=== PATIENT | female | born 1990 | race Caucasian/White ===

== ENCOUNTER 2016-10-23 12:43 | Emergency (ER) | payer MEDICAID ==
[2012-03-18 21:31] VITALS: BP 142/87
[2016-10-23] MEDS ORDERED: TORAdol 30 mg Injection IM ONE (13:32)
[2016-10-23] MEDS ORDERED: Norflex 60 MG/2 ML IM ONE (13:32)
--- NOTE | 2016-10-23 13:35 | ERPHSYRPT ---
- History of Present Illness Time Seen by Provider: 10/23/16 13:29 Source: patient Patient Subjective Stated Complaint: pt states she began having right mid-lower back pain last evening. denies any injury. denies any dysuria. Triage Nursing Assessment: pt pink, warm, dry. pt ambulted into ER without difficulty. no deformity noted to back. Physician History: CC: back pain Hx: 26 y/o patient with rather severe back pain, worse with any movement. LMP last week and normal. No cough, abd pain, N/T/W. Normal urination with no dysuria or incontinence. No fever or chills. Prior kidney infection. No discreet injury. Timing/Duration: day(s) (couple) Back Pain Location: lumbar spine Severity of Pain-Max: severe Severity of Pain-Current: severe Allergies/Adverse Reactions: banana [Banana] Allergy (Verified 10/23/16 13:21) Home Medications: Acetaminophen [Tylenol] 325 mg PO Q6HPRN PRN 10/23/16 [History] [place]'s Wort 300 mg PO DAILY 10/23/16 [History] Hx Tetanus, Diphtheria Vaccination/Date Given: Yes (unknown) Hx Influenza Vaccination/Date Given: No Hx Pneumococcal Vaccination/Date Given: No Immunizations Up to Date: Yes - Review of Systems Constitutional: No Fever, No Chills Eyes: No Symptoms Ears, Nose, & Throat: No Symptoms Respiratory: No Cough Abdominal/Gastrointestinal: Nausea, No Abdominal Pain, No Vomiting Genitourinary Symptoms: No Dysuria, No Hematuria, No Incontinence, No Musculoskeletal: Back Pain Skin: No Rash Neurological: No Focal Weakness, No Headache, No Parasthesia All Other Systems: Reviewed and Negative - Past Medical History Pertinent Past Medical History: No Neurological History: Migraines ENT History: No Pertinent History Cardiac History: No Pertinent History Respiratory History: Asthma Endocrine Medical History: No Pertinent History Musculoskeletal History: Fractures GI Medical History: No Pertinent History History: No Pertinent History Psycho-Social History: Depression Female Reproductive Disorders: No Pertinent History Other Medical History: hx right wrist fracture - Past Surgical History Past Surgical History: Yes Neuro Surgical History: No Pertinent History Cardiac: No Pertinent History Respiratory: No Pertinent History Gastrointestinal: No Pertinent History Genitourinary: No Pertinent History Musculoskeletal: Orthopedic Surgery Female Surgical History: No Pertinent History Other Surgical History: tonsillectomy - Social History Smoking Status: Current every day smoker How long have you smoked: 10 Exposure to second hand smoke: Yes Drug Use: none Patient Lives Alone: No - Female History Hx Last Menstrual Period: october 14 Hx Now: Yes - Nursing Vital Signs Nursing Vital Signs: Initial Vital Signs Temperature 99.3 F Temperature Source Oral Pulse Rate 74 Respiratory Rate 18 Blood Pressure [Right Arm] 128/89 Pain Intensity [Right Lower 8 Back] Pain Intensity 8 - Physical Exam General Appearance: alert Eye Exam: PERRL/EOMI Ears, Nose, Throat Exam: moist mucous membranes Neck Exam: normal inspection, non-tender, supple Respiratory Exam: normal breath sounds Cardiovascular Exam: regular rate/rhythm Gastrointestinal Exam: soft, No tenderness, No distention Back Exam: normal inspection, muscle spasm (right paraspinous worse), No CVA tenderness, No vertebral tenderness Extremity Exam: normal inspection, normal range of motion Neurologic Exam: alert, oriented x 3, cooperative, sensation nml, No motor deficits Skin Exam: warm, dry, No rash SpO2 Interpretation: normal SpO2: 99 Oxygen Delivery: Room Air - Course Nursing assessment & vital signs reviewed: Yes Ordered Tests: Active Orders 24 hr Category Date Time Status Clean Catch Urine Specimen STAT Care 10/23/16 13:32 Active HCG,QUALITATIVE URINE Stat Lab 10/23/16 13:40 Completed UA W/ MICROSCOPIC Stat Lab 10/23/16 13:32 Results Medication Summary Discontinued Medications Generic Name Dose Route Start Last Admin Trade Name Jakubq PRN Reason Stop Dose Admin Ketorolac Tromethamine 60 mg 10/23/16 13:32 10/23/16 13:42 Toradol 30 Mg Injection IM 10/23/16 13:33 60 mg STAT ONE Administration Ketorolac Tromethamine Confirm 10/23/16 13:41 Toradol 30 Mg Injection Administered 10/23/16 13:42 Dose 60 mg .ROUTE .STK-MED ONE Orphenadrine Citrate 60 mg 10/23/16 13:32 10/23/16 13:42 Norflex 60 Mg/2 Ml IM 10/23/16 13:33 60 mg STAT ONE Administration Orphenadrine Citrate Confirm 10/23/16 13:41 Norflex 60 Mg/2 Ml Administered 10/23/16 13:42 Dose 60 mg .ROUTE .STK-MED ONE Lab/Rad Data: Laboratory Results 10/23/16 10/23/16 Range/Units 13:40 13:32 Ur Collection Type CLEAN CATCH Urine Color YELLOW (YELLOW) Urine Appearance HAZY (CLEAR) Urine pH 8.0 (5-6) Ur Specific [place] 1.010 (1.005-1.025) Urine Protein NEGATIVE (Negative) Urine Ketones NEGATIVE (NEGATIVE) Urine Blood NEGATIVE (0-5) Lon/ul Urine Nitrite NEGATIVE (NEGATIVE) Urine Bilirubin NEGATIVE (NEGATIVE) Urine Urobilinogen NORMAL (0-1) mg/dL Ur Leukocyte Esterase TRACE (NEGATIVE) Urine Microscopic RBC 0-2 (0-2) /HPF Urine Microscopic WBC 2-5 (0-5) /HPF Ur Epithelial Cells FEW (FEW) /HPF Urine Bacteria FEW (NEGATIVE) /HPF Urine Mucus SLIGHT (NEGATIVE) /HPF Urine Glucose NEGATIVE (NEGATIVE) mg/dL Urine HCG, Qual NEGATIVE (Negative) Specimen Received [id number] - Progress Progress Note: 10/23/16 14:12 IM toradol and norflex given. Some relief starting. UA basically neg. Will release with back pain instr. Counseled pt/family regarding: lab results, diagnosis, need for follow-up - Departure Time of Disposition: 14:12 Departure Disposition: Home Clinical Impression: Back pain Qualifiers: Back pain location: low back pain Chronicity: acute Back pain laterality: bilateral Sciatica presence: without sciatica Qualified Code(s): M54.5 - Low back pain Condition: Stable Critical Care Time: No Referrals: ZEFERINO ARAMBULA [Primary Care Provider] - Instructions: Low Back Pain Additional Instructions: BACK INJURY 1. May apply moist heat frequently for relief of pain. Take care not to burn the skin. Do not use heat for more than 30 minutes at a time. 2. Try to sleep on a firm bed, flat on your back. 3. If no improvement is noticed in 2-3 days, follow up with your family physician. 4. If you notice any numbness, tingling, weakness, or problems with your bowel or bladder, you should call your family physician or return to the emergency department. Rx motrin=ibuprofen. Rx norflex. Follow up with Dr Arambula. No driving today or while taking norflex. Prescriptions: Ibuprofen 600 mg PO Q6H PRN PRN #24 tablet PRN Reason: Pain Orphenadrine Citrate 100 mg [Norflex 100 MG Tablet] 1 tab PO BID #10 tab
[2016-10-23 13:41] LABS: Bilirubin NEGATIVE (NEGATIVE); Blood NEGATIVE Ery/ul (0-5); COMPLETE URINE MICROSCOPIC? YES; Collection Type CLEAN CATCH; Glucose NEGATIVE (NEGATIVE); Leukocyte Esterase TRACE (NEGATIVE)
[2016-10-23] MEDS ORDERED: Norflex 60 MG/2 ML ONE (13:41)
[2016-10-23] MEDS ORDERED: TORAdol 30 mg Injection ONE (13:41)
[2016-10-23 13:49] LABS: Bacteria FEW /HPF (NEGATIVE); Epithelial Cells FEW /HPF (FEW); Mucus SLIGHT /HPF (NEGATIVE)
[2016-10-23 14:20] VITALS: BP 138/70; PULSE 86; O2SAT 100
[2016-10-23 14:33] LABS: ADD URINE CULTURE? NO (NO)
== END 2016-10-23 14:19 | disposition home or self-care (01) ==
LOC: ED 12:43
DX: M54.5 Low back pain (principal); R11.0 Nausea
CPT/HCPCS: 81000; 84703; 96372; 99283; J1885; J2360

== ENCOUNTER 2016-10-29 19:25 | Observation (INO) | payer MEDICAID, OTHER ==
[2016-10-29] MEDS ORDERED: THIAMINE 200 MG/2 ML IV ONE (19:32)
[2016-10-29] MEDS ORDERED: Ativan 2 MG/1 ML VIAL IV ONE ×3 (19:32→21:58)
[2016-10-29] MEDS ORDERED: Sodium Chloride 0.9% 1000 ML 1,000 ML IV STA (19:32)
--- NOTE | 2016-10-29 19:37 | ERPHSYRPT ---
- History of Present Illness Time Seen by Provider: 10/29/16 19:34 Source: patient, police Exam Limitations: clinical condition Physician History: 26-year-old white female who is brought by the radiology transporter's department, Patient arrives combative, Patient apparently drinking a large amount of alcohol, Patient will not tell me any complaints, Patient is restrained by the police, Past medical history includes asthma, rib fractures, depression, Past surgical history includes orthopedic surgery tonsillectomy and adenoidectomy Timing/Duration: today Severity: moderate Modifying Factors: Improves With: other (patient apparently drinking "fire balls today") Associated Symptoms: other (patient combative will not elaborate symptoms) Allergies/Adverse Reactions: banana [Banana] Allergy (Verified 10/23/16 13:21) Home Medications: Acetaminophen [Tylenol] 325 mg PO Q6HPRN PRN 10/23/16 [History] [place]'s Wort 300 mg PO DAILY 10/23/16 [History] Hx Tetanus, Diphtheria Vaccination/Date Given: Yes (unknown) Hx Influenza Vaccination/Date Given: No Hx Pneumococcal Vaccination/Date Given: No - Review of Systems Constitutional: No Fever, No Chills Eyes: No Symptoms Ears, Nose, & Throat: No Symptoms Respiratory: No Cough, No Dyspnea Cardiac: No Chest Pain, No Edema, No Syncope Abdominal/Gastrointestinal: No Abdominal Pain, No Nausea, No Vomiting, No Diarrhea Genitourinary Symptoms: No Dysuria Musculoskeletal: No Back Pain, No Neck Pain Skin: No Rash Neurological: No Dizziness, No Focal Weakness, No Sensory Changes Psychological: Other (patient combative will not elaboratesymptoms has been drinking) Endocrine: No Symptoms All Other Systems: Reviewed and Negative - Past Medical History Pertinent Past Medical History: No Neurological History: Migraines ENT History: No Pertinent History Cardiac History: No Pertinent History Respiratory History: Asthma Endocrine Medical History: No Pertinent History Musculoskeletal History: Fractures GI Medical History: No Pertinent History History: No Pertinent History Psycho-Social History: Depression Female Reproductive Disorders: No Pertinent History Other Medical History: hx right wrist fracture - Past Surgical History Past Surgical History: Yes Neuro Surgical History: No Pertinent History Cardiac: No Pertinent History Respiratory: No Pertinent History Gastrointestinal: No Pertinent History Genitourinary: No Pertinent History Musculoskeletal: Orthopedic Surgery Female Surgical History: No Pertinent History Other Surgical History: tonsillectomy - Social History Smoking Status: Current every day smoker How long have you smoked: 10 Exposure to second hand smoke: Yes Drug Use: none Patient Lives Alone: No - Female History Hx Now: Yes - Nursing Vital Signs Nursing Vital Signs: Initial Vital Signs Temperature 97.4 F Temperature Source Oral Pulse Rate 78 Respiratory Rate 16 Blood Pressure [Right Arm] 127/84 - Physical Exam General Appearance: other (well-developed obese white female yelling at staff restrained with hand cuffs, ) Eye Exam: PERRL/EOMI, eyes nml inspection Ears, Nose, Throat Exam: normal ENT inspection, TMs normal, pharynx normal, moist mucous membranes Neck Exam: normal inspection, non-tender, supple, full range of motion Respiratory Exam: normal breath sounds, lungs clear, No respiratory distress Cardiovascular Exam: regular rate/rhythm, normal heart sounds, normal peripheral pulses Gastrointestinal/Abdomen Exam: soft, normal bowel sounds, No tenderness, No mass Back Exam: normal inspection, normal range of motion, No CVA tenderness, No vertebral tenderness Extremity Exam: normal inspection, normal range of motion, pelvis stable Neurologic Exam: alert, oriented x 3, cooperative, normal mood/affect, nml cerebellar function, nml station & gait, sensation nml, No motor deficits Skin Exam: normal color, warm, dry, No rash Lymphatic Exam: No adenopathy SpO2 Interpretation: normal - Course EKG Interpreted by Me: RATE (96 bpm), NORMAL AXIS Ordered Tests: Active Orders 24 hr Category Date Time Status Accucheck STAT Care 10/29/16 19:32 Active EKG-ER Only STAT Care 10/29/16 21:25 Active IV Insertion STAT Care 10/29/16 19:32 Active ACETAMINOPHEN Stat Lab 10/29/16 20:29 Completed AMYLASE Stat Lab 10/29/16 20:29 Completed CBC W DIFF Stat Lab 10/29/16 20:29 Completed CMP Stat Lab 10/29/16 20:29 Completed ETHYL ALCOHOL Stat Lab 10/29/16 20:29 Completed HCG QUALITATIVE,SERUM Stat Lab 10/29/16 20:29 Completed LIPASE Stat Lab 10/29/16 20:29 Completed SALICYLATE Stat Lab 10/29/16 20:29 Completed UA W/RFX UR CULTURE Stat Lab 10/29/16 19:32 Ordered Urine Triage Profile Stat Lab 10/29/16 21:02 Completed Medication Summary Discontinued Medications Generic Name Dose Route Start Last Admin Trade Name Freq PRN Reason Stop Dose Admin Sodium Chloride 1,000 mls @ 999 mls/hr 10/29/16 19:32 10/29/16 20:23 Sodium Chloride 0.9% 1000 Ml IV 10/29/16 20:32 999 mls/hr .Q1H1M STA Administration Sodium Chloride Confirm 10/29/16 20:20 Sodium Chloride 0.9% 1000 Ml Administered 10/29/16 20:21 Dose 1,000 mls @ ud .ROUTE .STK-MED ONE Lorazepam 1 mg 10/29/16 19:32 10/29/16 20:35 Ativan 2 Mg/1 Ml Vial IV 10/29/16 19:33 Not Given STAT ONE Lorazepam Confirm 10/29/16 19:40 Ativan 2 Mg/1 Ml Vial Administered 10/29/16 19:41 Dose 2 mg .ROUTE .STK-MED ONE Lorazepam 2 mg 10/29/16 19:42 10/29/16 19:43 Ativan 2 Mg/1 Ml Vial IM 10/29/16 19:43 2 mg STAT ONE Administration Lorazepam 2 mg 10/29/16 19:57 10/29/16 19:59 Ativan 2 Mg/1 Ml Vial IM 10/29/16 19:58 2 mg STAT ONE Administration Lorazepam Confirm 10/29/16 19:56 Ativan 2 Mg/1 Ml Vial Administered 10/29/16 19:57 Dose 2 mg .ROUTE .STK-MED ONE Lorazepam 1 mg 10/29/16 20:18 10/29/16 20:25 Ativan 2 Mg/1 Ml Vial IV 10/29/16 20:19 1 mg STAT ONE Administration Lorazepam Confirm 10/29/16 20:20 Ativan 2 Mg/1 Ml Vial Administered 10/29/16 20:21 Dose 2 mg .ROUTE .STK-MED ONE Lorazepam 1 mg 10/29/16 21:58 Ativan 2 Mg/1 Ml Vial IV 10/29/16 21:59 STAT ONE Thiamine HCl 100 mg 10/29/16 19:32 10/29/16 20:24 Thiamine 200 Mg/2 Ml IV 10/29/16 19:33 100 mg STAT ONE Administration Thiamine HCl Confirm 10/29/16 20:20 Thiamine 200 Mg/2 Ml Administered 10/29/16 20:21 Dose 200 mg .ROUTE .STK-MED ONE Lab/Rad Data: Laboratory Result Diagrams 10/29/16 20:29 10/29/16 20:29 Laboratory Results 10/29/16 10/29/16 10/29/16 Range/Units 21:02 20:29 20:29 WBC 6.4 (4.0-10.5) K/mm3 RBC 4.39 (4.1-5.4) M/mm3 Hgb 13.8 (12.0-16.0) gm/dl Hct 40.1 (35-47) % MCV 91.3 (78-100) fl MCH 31.4 (26-32) pg MCHC 34.4 (32-36) g/dl RDW 15.1 H (11.5-14.0) % Plt Count 271 (150-450) K/mm3 MPV 11.9 H (6-9.5) fl Gran % 49.4 (36.0-66.0) % Lymphocytes % 40.3 (24.0-44.0) % Monocytes % 7.0 (0.0-12.0) % Eosinophils % 3.0 (0.00-5.0) % Basophils % 0.3 (0.0-0.4) % Basophils # 0.02 (0-0.4) Sodium (136-145) mEq/L Potassium (3.5-5.1) mEq/L Chloride (98-107) mEq/L Carbon Dioxide (21-32) mEq/L Anion Gap (5-15) MEQ/L BUN (9-20) mg/dL Creatinine (0.55-1.30) mg/dl Estimated GFR ML/MIN Glucose (70-110) MG/DL Calcium (8.5-10.1) mg/dL Total Bilirubin (0.2-1.0) mg/dL AST (15-37) U/L ALT (12-78) U/L Alkaline Phosphatase (46-116) U/L Serum Total Protein (6.4-8.2) gm/dL Albumin (3.4-5.0) g/dL Amylase (25-115) U/L Lipase (73-393) U/L Serum , Qual NEGATIVE (Negative) Salicylates (2.8-20.0) mg/dl Urine Opiates Level NEG. (NEGATIVE) Ur Methadone NEG. (NEGATIVE) Acetaminophen (10-30) ug/ml Urine Barbiturates NEG. (NEGATIVE) Ur Phencyclidine (PCP) NEG. (NEGATIVE) Urine Amphetamine NEG. (NEGATIVE) U Benzodiazepine Level NEG. (NEGATIVE) Urine Cocaine NEG. (NEGATIVE) Urine Marijuana (THC) NEG. (NEGATIVE) Ethyl Alcohol (0.00-0.01) % 10/29/16 Range/Units 20:29 WBC (4.0-10.5) K/mm3 RBC (4.1-5.4) M/mm3 Hgb (12.0-16.0) gm/dl Hct (35-47) % MCV (78-100) fl MCH (26-32) pg MCHC (32-36) g/dl RDW (11.5-14.0) % Plt Count (150-450) K/mm3 MPV (6-9.5) fl Gran % (36.0-66.0) % Lymphocytes % (24.0-44.0) % Monocytes % (0.0-12.0) % Eosinophils % (0.00-5.0) % Basophils % (0.0-0.4) % Basophils # (0-0.4) Sodium 141 (136-145) mEq/L Potassium 4.3 (3.5-5.1) mEq/L Chloride 106 (98-107) mEq/L Carbon Dioxide 21.4 (21-32) mEq/L Anion Gap 18.3 H (5-15) MEQ/L BUN 10 (9-20) mg/dL Creatinine 0.82 (0.55-1.30) mg/dl Estimated GFR > 60 ML/MIN Glucose 95 (70-110) MG/DL Calcium 9.0 (8.5-10.1) mg/dL Total Bilirubin 0.20 (0.2-1.0) mg/dL AST 24 (15-37) U/L ALT 26 (12-78) U/L Alkaline Phosphatase 48 (46-116) U/L Serum Total Protein 7.5 (6.4-8.2) gm/dL Albumin 3.7 (3.4-5.0) g/dL Amylase 39 (25-115) U/L Lipase 91 (73-393) U/L Serum , Qual (Negative) Salicylates 6.6 (2.8-20.0) mg/dl Urine Opiates Level (NEGATIVE) Ur Methadone (NEGATIVE) Acetaminophen < 2.0 L (10-30) ug/ml Urine Barbiturates (NEGATIVE) Ur Phencyclidine (PCP) (NEGATIVE) Urine Amphetamine (NEGATIVE) U Benzodiazepine Level (NEGATIVE) Urine Cocaine (NEGATIVE) Urine Marijuana (THC) (NEGATIVE) Ethyl Alcohol 0.313 H* (0.00-0.01) % - Progress Progress: improved Progress Note: 10/29/16 21:55 Patient with blood alcohol level of 0.313 other labs essentially normal. Patient did arrive combative. She has been given IV normal saline 1 L thiamine 100 mg IV Ativan 2 mg IM 2 and 1 mg IV 1. EKG no acute changes patient is stable. Case is discussed with Dr. Arambula will place patient on ICU diagnosis alcohol intoxication, alcohol toxicity. Will provide IV fluids, Ativan as needed for anxiety and agitation and thiamine 100 mg daily. - Departure Time of Disposition: 21:56 Departure Disposition: Observation Clinical Impression: ALCOHOL TOXICITY, Agitation Alcohol intoxication Qualifiers: Complication of substance-induced condition: uncomplicated Qualified Code(s): F10.920 - Alcohol use, unspecified with intoxication, uncomplicated Condition: Fair Critical Care Time: No Referrals: ZEFERINO ARAMBULA [Primary Care Provider] -
[2016-10-29] MEDS ORDERED: Ativan 2 MG/1 ML VIAL ONE ×4 (19:40→21:59)
[2016-10-29] MEDS ORDERED: Ativan 2 MG/1 ML VIAL IM ONE ×2 (19:42→19:57)
[2016-10-29] MEDS ORDERED: Sodium Chloride 0.9% 1000 ML 1,000 ML ONE ×2 (20:20→22:06)
[2016-10-29] MEDS ORDERED: THIAMINE 200 MG/2 ML ONE (20:20)
[2016-10-29 21:01] LABS: ALBUMIN 3.7 g/dL (3.4-5.0); ALKALINE PHOSPHATASE 48 U/L (46-116); ANION GAP 18.3 MEQ/L (5-15); BLOOD UREA NITROGEN 10 mg/dL (9-20); CHLORIDE 106 mEq/L (98-107); Carbon Dioxide 21.4 mEq/L (21-32); Glucose 95 MG/DL (70-110); LIPASE 91 U/L (73-393); Potassium 4.3 mEq/L (3.5-5.1); SGOT/AST 24 U/L (15-37); SGPT/ALT 26 U/L (12-78); SODIUM 141 mEq/L (136-145); Total Protein 7.5 gm/dL (6.4-8.2)
[2016-10-29 21:08] LABS: ACETAMINOPHEN < 2.0 ug/ml (10-30)
[2016-10-29 21:11] LABS: ETHYL ALCOHOL 0.313 % (0.00-0.01)
[2016-10-29 21:32] LABS: BASOPHIL % 0.3 % (0.0-0.4); Granulocytes % 49.4 % (36.0-66.0); Lymphocytes % 40.3 % (24.0-44.0); Mean Cell Volume 91.3 fl (78-100); Mean Corpuscular Hemoglobin 31.4 pg (26-32); Mean Platelet Volume 11.9 fl (6-9.5); Platelet Count 271 K/mm3 (150-450); Red Blood Count 4.39 M/mm3 (4.1-5.4); Red Cell Distribution Width 15.1 % (11.5-14.0); White Blood Count 6.4 K/mm3 (4.0-10.5)
[2016-10-29] MEDS ORDERED: Sodium Chloride 0.9% 1000 ML 1,000 ML IV SCH (23:51)
[2016-10-29] MEDS ORDERED: Ativan 2 MG/1 ML VIAL IV PRN (23:51)
[2016-10-30 07:01] LABS: BASOPHIL % 0.4 % (0.0-0.4); Eosinophil % 3.7 % (0.00-5.0); Granulocytes % 44.8 % (36.0-66.0); Lymphocytes % 39.8 % (24.0-44.0); Mean Cell Volume 92.5 fl (78-100); Mean Platelet Volume 11.8 fl (6-9.5); Monocytes % 11.3 % (0.0-12.0); Platelet Count 222 K/mm3 (150-450); Red Cell Distribution Width 15.3 % (11.5-14.0); White Blood Count 5.7 K/mm3 (4.0-10.5)
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
[2016-10-30 07:15] LABS: Mean Corpuscular Hemoglobin 30.7 pg (26-32)
[2016-10-30 07:44] LABS: ALBUMIN 3.1 g/dL (3.4-5.0); ALKALINE PHOSPHATASE 38 U/L (46-116); ANION GAP 15.4 MEQ/L (5-15); BLOOD UREA NITROGEN 12 mg/dL (9-20); CHLORIDE 112 mEq/L (98-107); Carbon Dioxide 21.6 mEq/L (21-32); Glucose 87 MG/DL (70-110); Potassium 4.1 mEq/L (3.5-5.1); SGOT/AST 20 U/L (15-37); SGPT/ALT 22 U/L (12-78); SODIUM 145 mEq/L (136-145); Total Protein 6.3 gm/dL (6.4-8.2)
[2016-10-30] MEDS ORDERED: TYLENOL 325 MG PO PRN (10:46)
[2016-10-30] MEDS ORDERED: MOTRIN 600 MG PO PRN (10:46)
[2016-10-30 11:37] VITALS: BP 102/76; PULSE 79; O2SAT 95
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
--- NOTE | 2016-10-30 15:10 | PCM.DCORD ---
- Discharge Disposition: Home, Self-Care Condition: Stable Prescriptions: Continue Acetaminophen [Tylenol] 325 mg PO Q6HPRN PRN PRN Reason: Pain And/Or Fever Ibuprofen 600 mg PO Q6H PRN PRN #24 tablet PRN Reason: Pain Orphenadrine Citrate 100 mg [Norflex 100 MG Tablet] 1 tab PO BID #10 tab No Action Porsha's Wort 300 mg PO DAILY Follow up with: ZEFERINO ARANDA [Primary Care Provider] -
[2016-10-30] MEDS ORDERED: Norflex 100 MG Tablet PO PRN (22:00)
== END 2016-10-30 15:30 | disposition home or self-care (01) ==
LOC: ED 19:25 → ICU 23:42
PROVIDERS: ADMIT Family Medicine; ATTEND Family Medicine
DX: R45.851 Suicidal ideations (principal); F10.129 Alcohol abuse with intoxication, unspecified; F32.9 Major depressive disorder, single episode, unspecified; R45.1 Restlessness and agitation; J45.909 Unspecified asthma, uncomplicated; M54.5 Low back pain; V89.2XXA Person injured in unspecified motor-vehicle accident, traffic, initial encounter; Z72.0 Tobacco use
CPT/HCPCS: 36000; 36415; 80053; 80307; 82150; 82962; 83690; 84703; 85025; 90791; 93005; 96360; 96361; 96372; 96374; 96376; 99285; 99291; G0378; G0481; J2060

== ENCOUNTER 2021-09-16 20:34 | Emergency (ER) | payer OTHER ==
[2021-09-16 20:50] VITALS: O2SAT 100
[2021-09-16] MEDS ORDERED: TORAdol 30 mg Injection IM ONE (20:51)
[2021-09-16] MEDS ORDERED: TORAdol 30 mg Injection ONE (20:58)
--- NOTE | 2021-09-16 21:47 | ERPHSYRPT ---
- History of Present Illness Time Seen by Provider: 09/16/21 20:42 Source: patient Exam Limitations: no limitations Patient Subjective Stated Complaint: " I tripped and fell down 4 stairs this afternoon and now I can't hardly walk on my right feet. My ankle hurts". Triage Nursing Assessment: Pt presents to ER with complaints of right ankle/foot injury. Pt is alert and oriented x 3. Skin is pink, warm, and dry. Respirations are unlabored at this time. Pt states pain is 8 on 10 scale. Noted tenderness and swelling to right ankle and foot. Pt is wheeled back to ER room 9 and unable to put pressure on right foot when attempted to walk. Pt ROM is limited in right ankle/foot. Physician History: 31 years old presented in the ER after she tripped and fell for step bending her right ankle this afternoon with progressively worsening sharp shooting pain with some swelling around ankle. No injury anywhere else. Method of Injury: fell Occurred: this afternoon Quality: sharpness Severity of Pain-Max: moderate Severity of Pain-Current: moderate Lower Extremities Pain: foot: right, ankle: right Modifying Factors: Improves With: immobilization, rest. Worsens With: movement Associated Symptoms: unable to bear weight Allergies/Adverse Reactions: banana [Banana] Allergy (Verified 09/16/21 20:50) Home Medications: Acetaminophen [Tylenol] 325 mg PO Q6HPRN PRN 10/23/16 [History] Porsha's Wort 300 mg PO DAILY 10/23/16 [History] Hx Tetanus, Diphtheria Vaccination/Date Given: Yes Hx Influenza Vaccination/Date Given: Yes Hx Pneumococcal Vaccination/Date Given: No Immunizations Up to Date: Yes Travel Risk - International Travel Have you traveled outside of the country in past 3 weeks: No - Coronavirus Screening Are you exhibiting any of the following symptoms?: No Close contact with a COVID-19 positive Pt in past 14-21 Days: No - Vaccine Status Have you recieved a Covid-19 vaccination: No - Review of Systems Constitutional: No Symptoms Ears, Nose, & Throat: No Symptoms Respiratory: No Symptoms Cardiac: No Symptoms Abdominal/Gastrointestinal: No Symptoms Genitourinary Symptoms: No Symptoms Musculoskeletal: Injury, Joint Pain, Joint Swelling Skin: No Symptoms Neurological: No Symptoms Endocrine: No Symptoms Hematologic/Lymphatic: No Symptoms Immunological/Allergic: No Symptoms - Past Medical History Pertinent Past Medical History: Yes Neurological History: Migraines ENT History: No Pertinent History Cardiac History: No Pertinent History Respiratory History: Asthma Endocrine Medical History: No Pertinent History Musculoskeletal History: Fractures GI Medical History: No Pertinent History History: No Pertinent History Psycho-Social History: Anxiety, Depression Female Reproductive Disorders: No Pertinent History Other Medical History: hx right wrist fracture - Past Surgical History Past Surgical History: Yes Neuro Surgical History: No Pertinent History Cardiac: No Pertinent History Respiratory: No Pertinent History Gastrointestinal: No Pertinent History Genitourinary: No Pertinent History Musculoskeletal: Orthopedic Surgery Female Surgical History: Tubal Ligation Other Surgical History: tonsillectomy - Social History Smoking Status: Current every day smoker How long have you smoked: 10 Exposure to second hand smoke: No Drug Use: none Patient Lives Alone: No - Female History Hx Last Menstrual Period: 08/26/2021 Hx Now: No - Nursing Vital Signs Nursing Vital Signs: Initial Vital Signs Temperature 97.5 F 09/16/21 20:42 Pulse Rate 104 H 09/16/21 20:42 Respiratory Rate 18 09/16/21 20:42 Blood Pressure 109/90 09/16/21 20:42 O2 Sat by Pulse Oximetry 100 09/16/21 20:42 Pain Scale Pain Intensity 8 - Physical Exam General Appearance: no apparent distress, alert Eyes, Ears, Nose, Throat Exam: normal ENT inspection Neck Exam: normal inspection, full range of motion Cardiovascular/Respiratory Exam: normal breath sounds, regular rate/rhythm Legs Exam: bilateral leg: non-tender, normal inspection, normal range of motion, no evidence of injury Knees Exam: bilateral knee: non-tender, normal inspection, normal range of motion, no evidence of injury Ankle Exam: right ankle: bone tenderness (Bimalleolar), limited range of motion, pain, soft tissue tenderness, swelling, left ankle: non-tender, normal inspection, normal range of motion, no evidence of injury Foot Exam: right foot: bone tenderness (Base of fifth metatarsal), pain Neuro/Tendon Exam: normal sensation, normal motor functions, normal tendon f unctions Mental Status Exam: alert, oriented x 3 Skin Exam: normal color SpO2 Interpretation: normal SpO2: 100 O2 Delivery: Room Air Ordered Tests: Active Orders 24 hr Category Date Time Status ANKLE (3 VIEWS) Stat Exams 09/16/21 21:04 Taken FOOT (MINIMUM 3 VIEWS) Stat Exams 09/16/21 21:04 Taken Medication Summary Discontinued Medications Generic Name Dose Route Start Last Admin Trade Name Bere PRN Reason Stop Dose Admin Ketorolac Tromethamine 30 mg 09/16/21 20:51 09/16/21 21:03 Ketorolac Tromethamine 30 Mg/Ml Inj IM 09/16/21 20:52 30 mg STAT ONE Administration Ketorolac Tromethamine Confirm 09/16/21 20:58 Ketorolac Tromethamine 30 Mg/Ml Inj Administered 09/16/21 20:59 Dose 30 mg .ROUTE .STK-MED ONE - Progress Progress: improved Progress Note: 09/16/21 21:45 Given Toradol for symptomatic relief. X-rays reviewed by me did not show any obvious fracture dislocation in the foot and ankle. I believe patient has ankle sprain, placed in Aircast, crutches, NSAIDs and outpatient podiatry follow-up. Counseled pt/family regarding: diagnosis, need for follow-up, rad results - Departure Departure Disposition: Home Clinical Impression: Ankle sprain, Fall Condition: Stable Critical Care Time: No Referrals: ZEFERINO SMITH [Primary Care Provider] - Follow Up with PCP/3 days VESTA ANNE DPM [ACTIVE STAFF] - Follow up/PCP as directed (In 3 days for reevaluation) Instructions: Foot Sprain (DC), Ankle Sprain (DC) Additional Instructions: Keep it elevated, weightbearing as tolerated. Intermittent ice application. Take Tylenol/ibuprofen as needed for pain. Follow-up with podiatry for reevaluation. Return to ER for any worsening. Prescriptions: Ibuprofen 600 mg PO Q6HPRN PRN 10 Days #20 tablet PRN Reason: Pain
[2021-09-16 22:21] VITALS: BP 121/80; PULSE 98
--- NOTE | 2021-09-17 07:40 | XRAY ---
Indication: Pain following fall. Comparison: None 3 nonweightbearing views right foot demonstrates tiny posterior heel spur. No other bony, articular, or soft tissue abnormalities.
--- NOTE | 2021-09-17 07:40 | XRAY ---
Indication: Pain following fall. Comparison: None 3 view right ankle demonstrates mild lateral soft tissue swelling and tiny posterior heel spur. No other bony, articular, or soft tissue abnormalities.
== END 2021-09-16 23:00 | disposition home or self-care (01) ==
LOC: ED 20:34
DX: S93.401A Sprain of unspecified ligament of right ankle, initial encounter (principal); W10.9XXA Fall (on) (from) unspecified stairs and steps, initial encounter; M25.571 Pain in right ankle and joints of right foot; Z72.0 Tobacco use
CPT/HCPCS: 73610; 73630; 96372; 99284; J1885